=== PATIENT | female | born 1975 | race Caucasian/White ===

== ENCOUNTER → 2016-05-13 | Outpatient (CLI) | payer OTHER ==
--- NOTE | 2016-05-14 08:54 | MM ---
Reason for exam: screening (asymptomatic). Last mammogram was performed 5 years and 11 months ago. History: Patient had first child at age 31. Taking hormonal contraceptives for 1 year beginning at age 33. Physical Findings: A clinical breast exam by your physician is recommended on an annual basis and results should be correlated with mammographic findings. MG Screening Mammo w CAD Bilateral CC and MLO view(s) were taken. Prior study comparison: June 01, 2010, bilateral digital screening mammo w/CAD. The breast tissue is heterogeneously dense. This may lower the sensitivity of mammography. There is no discrete abnormality. No significant changes when compared with prior studies. ASSESSMENT: Negative, BI-RAD 1 RECOMMENDATION: Routine screening mammogram of both breasts in 1 year.
== END ==
LOC: RADMAMWWP 09:12
PROVIDERS: ATTEND Obstetrics & Gynecology
DX: Z12.31 Encounter for screening mammogram for malignant neoplasm of breast (principal)

== ENCOUNTER → 2017-07-12 | Outpatient (CLI) | payer BC ==
--- NOTE | 2017-07-13 10:43 | MM ---
Reason for exam: screening (asymptomatic). Last mammogram was performed 1 year and 2 months ago. History: Patient had first child at age 31. Took hormonal contraceptives for 1 year beginning at age 33. Physical Findings: A clinical breast exam by your physician is recommended on an annual basis and results should be correlated with mammographic findings. MG 3D Screening Mammo W/Cad Bilateral CC and MLO view(s) were taken. Prior study comparison: May 13, 2016, bilateral MG screening mammo w CAD. June 01, 2010, bilateral digital screening mammo w/CAD. The breast tissue is heterogeneously dense. This may lower the sensitivity of mammography. Nodular density left breast 6.7cm from nipple. This finding is changed when compared with previous exams. ASSESSMENT: Incomplete: need additional imaging evaluation, BI-RAD 0 RECOMMENDATION: Special view mammogram of the left breast. If lesion persists on supplemental views, image directed ultrasound is recommended. [facility] will attempt to contact patient to return for supplemental views and ultrasound if indicated.
== END | disposition home or self-care (01) ==
LOC: RADMAMWWP 16:34
PROVIDERS: ATTEND Obstetrics & Gynecology
DX: Z12.31 Encounter for screening mammogram for malignant neoplasm of breast (principal)
CPT/HCPCS: 77063; 77067

== ENCOUNTER → 2017-07-19 | Outpatient (CLI) | payer BC ==
--- NOTE | 2017-07-19 10:06 | MM ---
Reason for exam: additional evaluation requested from abnormal screening. Last mammogram was performed less than 1 month ago. History: Patient had first child at age 31. Took hormonal contraceptives for 15 years beginning at age 19. Physical Findings: Nurse did not find any significant physical abnormalities on exam. MG 3D Work Up W/Cad LT Spot compression CC, spot compression MLO, spot compression LM, and LM view(s) were taken of the left breast. Prior study comparison: July 12, 2017, bilateral MG 3d screening mammo w/cad. May 13, 2016, bilateral MG screening mammo w CAD. The breast tissue is heterogeneously dense. This may lower the sensitivity of mammography. 1.5 x 0.8cm circumscribed oval mass persists 9 o'clock left breast. These results were verbally communicated with the patient and result sheet given to the patient on 07/19/17. ASSESSMENT: Incomplete: need additional imaging evaluation, BI-RAD 0 RECOMMENDATION: Ultrasound of the left breast. (7-10:00)
--- NOTE | 2017-07-19 10:08 | USB ---
Reason for exam: additional evaluation requested from abnormal screening. History: Patient had first child at age 31. Took hormonal contraceptives for 15 years beginning at age 19. US Breast Workup Limited LT Left limited breast ultrasound including focal area of concern, retroareolar and axilla demonstrates no cystic or solid lesion seen. Scanned 6-10 o'clock. 6 month follow up mammogram recommended. These results were verbally communicated with the patient and result sheet given to the patient on 07/19/17. ASSESSMENT: Probably benign, BI-RAD 3 RECOMMENDATION: Follow-up diagnostic mammogram of the left breast in 6 months.
== END | disposition home or self-care (01) ==
LOC: RADMAMWWP 08:16
PROVIDERS: ATTEND Obstetrics & Gynecology
DX: R92.8 Other abnormal and inconclusive findings on diagnostic imaging of breast (principal)
CPT/HCPCS: 77061; 77065

== ENCOUNTER → 2018-08-30 | Outpatient (CLI) | payer BC ==
--- NOTE | 2018-08-31 07:27 | MM ---
Reason for exam: additional evaluation requested from prior study. Last mammogram was performed 7 months ago. History: Patient had first child at age 31. Took hormonal contraceptives for 15 years beginning at age 19. Physical Findings: Nurse did not find any significant physical abnormalities on exam. MG 3D Diag Mammo W/Cad [facility] Bilateral CC and MLO view(s) were taken. Prior study comparison: January 24, 2018, left breast MG 3d diag mammo w/cad LT. July 19, 2017, left breast MG 3d work up w/cad LT. The breast tissue is heterogeneously dense. This may lower the sensitivity of mammography. Benign calcifications. No significant new findings when compared with previous films. These results were verbally communicated with the patient and result sheet given to the patient on 08/30/18. ASSESSMENT: Benign, BI-RAD 2 RECOMMENDATION: Routine screening mammogram of both breasts in 1 year.
== END | disposition home or self-care (01) ==
LOC: RADMAMWWP 15:32
PROVIDERS: ATTEND Obstetrics & Gynecology
DX: R92.8 Other abnormal and inconclusive findings on diagnostic imaging of breast (principal)
CPT/HCPCS: 77062; 77066

== ENCOUNTER → 2020-03-26 | Outpatient (CLI) | payer BC ==
[2020-03-26 08:32] LABS: HCT 42.8 % (34.0-46.0); HGB 14.7 gm/dL (11.4-16.0); MCHC 34.3 g/dL (31.0-37.0); MCV 93.3 fL (80.0-100.0); Platelet Count 254 k/uL (150-450); RBC 4.59 m/uL (3.80-5.40); RDW 11.5 % (11.5-15.5); WBC 4.9 k/uL (3.8-10.6)
[2020-03-26 12:23] LABS: African American GFR (CKD) 103.9 (60.0-200.0); Albumin 4.6 g/dL (3.80-4.90); Albumin/Globulin Ratio 2.09 (1.60-3.17); Anion Gap 4.8 mmol/L (4.00-12.00); BUN/Creat Ratio 13.75 Ratio (12.00-20.00); Calcium 9.4 mg/dL (8.7-10.3); Carbon Dioxide 27.2 mmol/L (21.6-31.8); Chol/HDL Ratio 2.47; Globulin 2.2 g/dL (1.6-3.3); LDL Cholesterol,Calculated 100.2 mg/dL (0.0-131.0); Non-African American GFR(CKD) 89.7 (60.0-200.0); Potassium 4.7 mmol/L (3.5-5.5); Total Bilirubin 1.1 mg/dL (0.2-1.2); Total Protein 6.8 g/dL (6.2-8.2); VLDL Calculation 11.8 mg/dL (5.00-40.00)
== END | disposition home or self-care (01) ==
LOC: LABWHC1 07:47
PROVIDERS: ATTEND Physician Assistant
DX: Z01.419 Encounter for gynecological examination (general) (routine) without abnormal findings (principal); R53.83 Other fatigue
CPT/HCPCS: 36415; 80053; 80061; 82306; 85027

== ENCOUNTER → 2020-04-04 | Outpatient (CLI) | payer BC ==
--- NOTE | 2020-04-07 09:25 | MM ---
Reason for exam: screening (asymptomatic). Last mammogram was performed 1 year and 7 months ago. History: Patient had first child at age 31. Took hormonal contraceptives for 15 years beginning at age 19. Physical Findings: A clinical breast exam by your physician is recommended on an annual basis and results should be correlated with mammographic findings. MG 3D Screening Mammo W/Cad Bilateral CC and MLO view(s) were taken. Prior study comparison: August 30, 2018, bilateral MG 3d diag mammo w/cad [facility]. January 24, 2018, left breast MG 3d diag mammo w/cad LT. The breast tissue is extremely dense which could obscure a lesion on mammography. There is no discrete abnormality. No significant changes when compared with prior studies. ASSESSMENT: Negative, BI-RAD 1 RECOMMENDATION: Routine screening mammogram of both breasts in 1 year.
== END | disposition home or self-care (01) ==
LOC: RADMAMWWP 07:32
PROVIDERS: ATTEND Obstetrics & Gynecology
DX: Z12.31 Encounter for screening mammogram for malignant neoplasm of breast (principal)
CPT/HCPCS: 77063; 77067

== ENCOUNTER → 2021-06-15 | Outpatient (CLI) | payer BC ==
--- NOTE | 2021-06-16 11:02 | MM ---
Reason for exam: screening (asymptomatic). Last mammogram was performed 1 year and 2 months ago. History: Patient had first child at age 31. Took hormonal contraceptives for 15 years beginning at age 19. Physical Findings: A clinical breast exam by your physician is recommended on an annual basis and results should be correlated with mammographic findings. MG 3D Screening Mammo W/Cad Bilateral CC and MLO view(s) were taken. Prior study comparison: April 04, 2020, bilateral MG 3d screening mammo w/cad. August 30, 2018, bilateral MG 3d diag mammo w/cad [facility]. The breast tissue is heterogeneously dense. This may lower the sensitivity of mammography. No significant changes when compared with prior studies. ASSESSMENT: Benign, BI-RAD 2 RECOMMENDATION: Routine screening mammogram of both breasts in 1 year.
== END | disposition home or self-care (01) ==
LOC: RADMAMWWP 16:29
PROVIDERS: ATTEND Obstetrics & Gynecology
DX: Z12.31 Encounter for screening mammogram for malignant neoplasm of breast (principal)
CPT/HCPCS: 77063; 77067

== ENCOUNTER → 2022-06-16 | Outpatient (CLI) | payer BC ==
--- NOTE | 2022-06-17 08:53 | MM ---
Reason for Exam: Screening (asymptomatic). Last screening mammogram was performed 12 month(s) ago. Patient History: Menarche at age 11. First Full-Term at age 31. Late child-bearing (after 30). Patient has history of breast feeding. Hormonal Contraceptives for 15 years from age 19 until age 34. Last menstrual period: 06/09/2022 Risk Values: Liberty 5 year model risk: 1.3%. NCI Lifetime model risk: 14.0%. Prior Study Comparison: 08/30/2018 Bilateral Diagnostic Mammogram, [facility]. 04/04/2020 Bilateral Screening Mammogram, [facility]. 06/15/2021 Bilateral Screening Mammogram, [facility]. Tissue Density: The breast tissue is heterogeneously dense. This may lower the sensitivity of mammography. Findings: Analyzed By CAD. There is no suspicious group of microcalcifications or new suspicious mass in either breast. Overall Assessment: Negative, BI-RAD 1 Management: Screening Mammogram of both breasts in 1 year. 1. Patient should continue monthly self breast exams. 2. A clinical breast exam by your physician is recommended on an annual basis. 3. This exam should not preclude additional follow-up of suspicious palpable abnormalities. Electronically signed and approved by: Jono Brennan M.D. Radiologist
== END | disposition home or self-care (01) ==
LOC: RADMAMWWP 07:04
PROVIDERS: ATTEND Obstetrics & Gynecology
DX: Z12.31 Encounter for screening mammogram for malignant neoplasm of breast (principal)
CPT/HCPCS: 77063; 77067

== ENCOUNTER 2022-07-02 14:36 | Emergency (ER) | payer BC, OTHER ==
[2022-07-02] MEDS ORDERED: CYCLOBENZAPRINE 10 MG TAB PO STA (14:56)
[2022-07-02] MEDS ORDERED: KETOROLAC 15 MG/ML 1 ML VIAL IM STA (14:56)
--- NOTE | 2022-07-02 15:02 | ED ---
Head Injury HPI - General Chief complaint: Head Injury Stated complaint: [facility]HS/HEAD INJURY Time Seen by Provider: 07/02/22 14:49 Source: patient, RN notes reviewed, old records reviewed Mode of arrival: ambulatory Limitations: no limitations - History of Present Illness Initial comments: This is a pleasant nontoxic-appearing 46 year old female that presents ambulatory with family with complaints of having a surgical instrument container weighing approximately 7 pounds fall off of an overhead shelf hitting her on the top of her head, right side. Did not lose consciousness but does feel "foggy". No bleeding. States that she does feel the pain go down the right side of her neck. Does not take any blood thinners. No nausea vomiting dizziness or vision changes. No medical history. MD Complaint: head injury -: hour(s) (1) Mechanism of Injury: work related injury (surgical instrument box fell on her head about 7 pounds) Location: parietal (right) Loss of Consciousness: no Previous Trauma to this Area: No Place: work Radiation: neck Severity scale (1-10): 3 Quality: aching Consistency: constant Associated Symptoms: denies other symptoms - Related Data Previous Rx's Medication Instructions Recorded Cyclobenzaprine [Flexeril] 10 mg PO TID PRN #15 tab 07/02/22 Allergies/Adverse reactions: Allergies Allergy/AdvReac Type Severity Reaction Status Date / Time No Known Allergies Allergy Verified 07/02/22 14:43 Review of Systems ROS Statement: Those systems with pertinent positive or pertinent negative responses have been documented in the HPI. ROS Other: All systems not noted in ROS Statement are negative. Past Medical History Past Medical History: No Reported History History of Any Multi-Drug Resistant Organisms: None Reported Past Surgical History: No Surgical Hx Reported Past Psychological History: No Psychological Hx Reported Smoking Status: Never smoker Past Alcohol Use History: Occasional Past Drug Use History: None Reported General Exam Limitations: no limitations General appearance: alert, in no apparent distress Head exam: Present: atraumatic, normocephalic, normal inspection Expanded Head exam: Present: general tenderness (right parietal). Absent: laceration, abrasion, contusion, hematoma, raccoon eyes, wyman's sign, tenderness of temporal artery, CSF rhinorrhea, CSF otorrhea Eye exam: Present: normal appearance, PERRL, EOMI. Absent: scleral icterus, conjunctival injection, nystagmus, periorbital swelling, periorbital tenderness ENT exam: Present: normal oropharynx, mucous membranes moist Expanded Mouth exam: Present: normal external inspection, tongue normal, tongue elevation. Absent: drooling, trismus, muffled voice Neck exam: Present: tenderness (right lateral), full ROM. Absent: meningismus, lymphadenopathy, thyromegaly Respiratory exam: Absent: respiratory distress, accessory muscle use Cardiovascular Exam: Present: bradycardia Extremities exam: Present: full ROM, normal capillary refill. Absent: tenderness, pedal edema, calf tenderness Neurological exam: Present: alert, oriented X3, CN II-XII intact Expanded Patient oriented to: Present: person, place, time Speech: Present: fluid speech Cranial nerves: EOM's Intact: Normal, Gag Reflex: Normal, Tongue Deviation: Normal Cerebellar function: Finger to Nose: Normal, Heel to [place]: Normal Motor strength exam: RUE: 5, LUE: 5, RLE: 5, LLE: 5 Eye Response: (4) open spontaneously Motor Response: (6) obeys commands Verbal Response: (5) oriented [place] Total: 15 Psychiatric exam: Present: normal affect, normal mood Skin exam: Present: warm, dry, normal color. Absent: cyanosis, diaphoretic, petechiae, pallor Course Vital Signs 07/02/22 14:38 Temperature 98.1 F Pulse Rate 54 L Respiratory 20 Rate Blood Pressure 116/67 O2 Sat by Pulse 99 Oximetry Medical Decision Making - Medical Decision Making Vital signs are stable. [facility] CT Head and C-spine rule result is unnecessary for CT. She was given Toradol and Flexeril for discomfort. Directed to rest. No strenuous activity. Discharged home with Zofran starter pack and Flexeril. Strict return parameters were discussed. Directed to follow-up with primary care doctor or occupational health for continuation of care. Patient any family member agreeable to this plan of care. Case discussed with Dr. Godwin Was pt. sent in by a medical professional or institution (, PA, SPECIAL ORDER JEWELER, urgent care, hospital, or [place] health care facility...) When possible be specific @ -No Did you speak to anyone other than the patient for history (EMS, parent, family, police, friend...)? What history was obtained from this source @ -No Did you review nursing and triage notes (agree or disagree)? Why? @ -I reviewed and agree with nursing and triage notes Were old charts reviewed (outside hosp., previous admission, EMS record, old EKG, old radiological studies, urgent care reports/EKG's, [place] health care facility records)? Report findings @ -No old charts were reviewed Differential Diagnosis (chest pain, altered mental status, abdominal pain women, abdominal pain men, vaginal bleeding, weakness, fever, dyspnea, syncope, headache, dizziness, GI bleed, back pain, seizure, CVA, palpatations, mental health, musculoskeletal)? @ -Skull fracture, intracranial bleed, concussion, hematoma, laceration, concussion, mild head trauma EKG interpreted by me (3pts min.). @ -n/a X-rays interpreted by me (1pt min.). @ -None done CT interpreted by me (1pt min.). @ -None done U/S interpreted by me (1pt. min.). @ -None done What testing was considered but not performed or refused? (CT, X-rays, U/S, labs)? Why? @ -CT considered however unnecessary. Bradley CT head and C-spine rule negative, no evidence of trauma, hematoma or step-offs. No cervical spine tenderness. What meds were considered but not given or refused? Why? @ -None Did you discuss the management of the patient with other professionals (professionals i.e. , PA, SPECIAL ORDER JEWELER, lab, RT, psych nurse, social services specialist, dry mop maker, teacher, protective services officer, egg caser)? Give summary @ -No Was smoking cessation discussed for >3mins.? @ -No Was critical care preformed (if so, how long)? @ -No Were there social determinants of health that impacted care today? How? (Homelessness, low income, unemployed, alcoholism, drug addiction, transportation, low edu. Level, literacy, decrease access to med. care, longterm, rehab)? @ -No Was there de-escalation of care discussed even if they declined (Discuss DNR or withdrawal of care, Hospice)? DNR status @ -No What co-morbidities impacted this encounter? (DM, HTN, Smoking, COPD, CAD, Cancer, CVA, ARF, Chemo, Hep., AIDS, mental health diagnosis, sleep apnea, morbid obesity)? @ -None Was patient admitted / discharged? Hospital course, mention meds given and route, prescriptions, significant lab abnormalities, going to OR and other pertinent info. @ -Discharged Undiagnosed new problem with uncertain prognosis? @ -No Drug Therapy requiring intensive monitoring for toxicity (Heparin, Nitro, Insulin, Cardizem)? @ -No Were any procedures done? @ -No Diagnosis/symptom? @ -Mild head trauma Acute, or Chronic, or Acute on Chronic? @ -Acute Uncomplicated (without systemic symptoms) or Complicated (systemic symptoms)? @ -default Side effects of treatment? @ -No Exacerbation, Progression, or Severe Exacerbation? @ -No Poses a threat to life or bodily function? How? (Chest pain, [place], [place], pneumonia, PE, COPD, DKA, ARF, appy, cholecystitis, CVA, Diverticulitis, Homicidal, Suicidal, threat to staff... and all critical care pts) @ -No Disposition Clinical Impression: Closed head injury Disposition: HOME SELF-CARE Condition: Good Instructions (If sedation given, give patient instructions): Concussion (ED) Additional Instructions: Tylenol and/or Motrin as needed for any pain or discomfort. Zofran as needed for nausea. Flexeril as a muscle relaxer as needed. Do not drive or drink alcohol or operate heavy machinery when taking Flexeril. Follow-up with your primary care doctor or occupational health on Tuesday. Return to the emergency room with any new or concerning symptoms. Prescriptions: Cyclobenzaprine [Flexeril] 10 mg PO TID PRN #15 tab PRN Reason: Muscle Spasm Is patient prescribed a controlled substance at d/c from ED?: No Referrals: Diana Traylor DO [Primary Care Provider] - 1-2 days Time of Disposition: 15:44
[2022-07-02] MEDS ORDERED: ONDANSETRON 4 MG ODT STARTER PACK 2 TAB BTL PO STA (15:44)
[2022-07-02 16:03] VITALS: BP 120/75; PULSE 53; RESP 16; TEMP 98.3
== END 2022-07-02 16:03 | disposition home or self-care (01) ==
LOC: SUPCPDRO 14:36 → EC 14:36
DX: S09.90XA Unspecified injury of head, initial encounter (principal); W22.8XXA Striking against or struck by other objects, initial encounter
CPT/HCPCS: 99283; 96372; J1885

== ENCOUNTER → 2022-07-09 | Outpatient (CLI) | payer OTHER ==
--- NOTE | 2022-07-09 10:03 | CT ---
EXAMINATION TYPE: CT brain cspine wo con DATE OF EXAM: 07/09/2022 COMPARISON: NONE HISTORY: 7 lb tray fell on RT parietal region on 07/02/22, headache, cervical pain. CT DLP: 1589 mGycm. Automated Exposure Control for Dose Reduction was Utilized. TECHNIQUE: CT scan of the head and cervical spine are performed without contrast. FINDINGS: There is no acute intracranial hemorrhage, mass effect, or midline shift identified. The ventricles and sulci are within normal limits in size. Mckenzie-white matter differentiation is maintai dolly. The globes are intact and the visualized sinuses are clear. The calvarium is intact. Cervical spine is visualized in its entirety from C1 through upper thoracic levels and demonstrates s atisfactory alignment without evidence of acute fracture or dislocation. Prevertebral soft tissue ap pears within normal limits. The C1-C2 articulation is within normal limits on the coronal images. V ertebral body heights and disc space heights are maintained. Spinal canal is preserved. Thyroid gland is within normal limits. Lung apices show no pneumothorax. IMPRESSION: 1. There is no acute fracture or dislocation evident in the cervical spine. 2. No acute intracranial hemorrhage, mass effect, or midline shift is seen.
== END | disposition home or self-care (01) ==
LOC: RADCTMAIN 09:15
PROVIDERS: ATTEND Emergency Medicine
DX: S00.83XA Contusion of other part of head, initial encounter (principal); S13.4XXA Sprain of ligaments of cervical spine, initial encounter
CPT/HCPCS: 70450; 72125

== ENCOUNTER 2023-02-23 06:36 | Day surgery (SDC) | payer BC ==
[2023-02-21 13:09] VITALS: BMI 27.0
[~2023-02-23 06:36] MED LIST: LACTATED RINGERS 1,000 ML IV SCH
[2023-02-23 07:14] VITALS: TEMP 97.1
[2023-02-23] MEDS ORDERED: PROPOFOL 10 MG/ML 20 ML VIAL IV ONE (07:23)
[2023-02-23] MEDS ORDERED: LIDOCAINE 1% INJ 10MG/ML (20 ML MDV) ONE (07:23)
--- NOTE | 2023-02-23 07:48 | P.PCN ---
Date of Procedure: 02/23/23 Procedure(s) Performed: Brief history: Patient is a pleasant 47-year-old white female scheduled for an upper endoscopy as well as colonoscopy as a part of evaluation of right upper quadrant abdominal pain and screening for colon cancer . Procedure performed: Esophagogastroduodenoscopy with biopsy Colonoscopy Preoperative diagnosis: Right upper quadrant abdominal pain Screening for colon cancer Anesthesia: [facility] Procedure: After informed consent was obtained from the patient was brought into the endoscopy unit and IV sedation was administered by anesthesia under continuous monitoring. Initially upper endoscopy was done. The Olympus GF 160 video endoscope was inserted inserted into the mouth and esophagus intubated without any difficulty and was gradually advanced into the stomach and duodenum and carefully examined. The bulb and second part of the duodenum appeared normal. The scope was then withdrawn into the stomach adequately insufflated with air and upon careful examination the antrum had mild gastritis and biopsies were done from this area. Mucosa of the body, cardia and fundus appeared normal. The scope was then withdrawn into the esophagus. The GE junction was located at 40 cm to the incisors. It appeared regular with no erythema erosions or ulcerations. Rest of the esophagus appeared normal. Patient tolerated the procedure well. At this time the patient continued to remain sedation. Initial digital rectal examination was normal. Olympus CF 160 video colonoscope was then inserted into the rectum and gradually advanced to the cecum without any difficulty. Careful examination was performed as the scope was gradually being withdrawn. The prep was excellent. The cecum, ascending colon, transverse colon, descending colon, sigmoid colon and rectum appeared normal. Scattered sigmoid diverticulosis. Recommend repeat screening colonoscopy in 10 years. Retroflexion was performed in the rectum and no lesions were noted. Patient tolerated the procedure well. Impression: 1. Upper endoscopy revealed mild antral gastritis but no evidence of esophagitis or peptic disease 2. Colonoscopy revealed scattered sigmoid diverticulosis but no evidence of colorectal neoplasia Recommendations: Findings of this examination were discussed with the patient as well as her family. She was advised to follow with the biopsy results. Recommend repeat scanning colonoscopy in 10 years.
[2023-02-23 08:04] VITALS: RESP 20
[2023-02-23 08:30] VITALS: BP 124/57; PULSE 56
== END 2023-02-23 08:35 ==
LOC: ORWHC2ENDO 06:36
PROVIDERS: ATTEND Internal Medicine Gastroenterology
DX: Z12.11 Encounter for screening for malignant neoplasm of colon (principal); K31.9 Disease of stomach and duodenum, unspecified; K21.9 Gastro-esophageal reflux disease without esophagitis; K57.30 Diverticulosis of large intestine without perforation or abscess without bleeding; Z79.899 Other long term (current) drug therapy
CPT/HCPCS: 81025; 88305; 43239; J2001; J2704; G0121

== ENCOUNTER → 2023-07-04 | Outpatient (CLI) | payer BC ==
--- NOTE | 2023-07-05 07:15 | MM ---
Reason for Exam: Screening (asymptomatic). Last screening mammogram was performed 12 month(s) ago. Patient History: Menarche at age 11. First Full-Term at age 31. Late child-bearing (after 30). Patient has history of breast feeding. Hormonal Contraceptives for 15 years from age 19 until age 34. Risk Values: Liberty 5 year model risk: 1.3%. NCI Lifetime model risk: 13.8%. Prior Study Comparison: 04/04/2020 Bilateral Screening Mammogram, [facility]. 06/15/2021 Bilateral Screening Mammogram, [facility]. 06/16/2022 Bilateral MG 3D screening mammo w/cad, [facility]. Tissue Density: The breasts are heterogeneously dense, which may obscure small masses. Findings: Analyzed By CAD. There is no suspicious group of microcalcifications. Asymmetric density upper outer right breast 6.9 cm from the nipple. Additional views are recommended. Overall Assessment: Incomplete: need additional imaging evaluation, BI-RAD 0 Management: Diagnostic Mammogram of the right breast. . Patient should continue monthly self-breast exams. A clinical breast exam by your physician is recommended on an annual basis. This exam should not preclude additional follow-up of suspicious palpable abnormalities. Note on Liberty scores and lifetime risk: 1. A Liberty score greater than 3% is considered moderate risk. If this is the case, consider specialist referral to assess eligibility for a risk reducing agent. 2. If overall lifetime risk for the development of breast cancer is 20% or higher, the patient may qualify for future screening with alternating mammogram and breast MRI. Electronically signed and approved by: Lorenzo Jose M.D. Radiologis
== END | disposition home or self-care (01) ==
LOC: RADMAMWWP 06:56
PROVIDERS: ATTEND Obstetrics & Gynecology
DX: Z12.31 Encounter for screening mammogram for malignant neoplasm of breast (principal)
CPT/HCPCS: 77063; 77067

== ENCOUNTER → 2023-07-08 | Outpatient (CLI) | payer BC ==
--- NOTE | 2023-07-08 13:59 | MM ---
Reason for Exam: Additional evaluation requested from abnormal screening. Last screening mammogram was performed less than 1 month ago. Patient History: Menarche at age 11. First Full-Term at age 31. Late child-bearing (after 30). Patient has history of breast feeding. Hormonal Contraceptives for 15 years from age 19 until age 34. Risk Values: Liberty 5 year model risk: 1.3%. NCI Lifetime model risk: 13.8%. Prior Study Comparison: 06/01/2010 Bilateral Screening Mammogram, [facility]. 05/13/2016 Bilateral Screening Mammogram, [facility]. 07/12/2017 Bilateral Screening Mammogram, [facility]. 07/19/2017 Left Diagnostic Mammogram, [facility]. 07/19/2017 Left Diagnostic Ultrasound, [facility]. 01/24/2018 Left Diagnostic Mammogram, [facility]. 01/24/2018 Left Diagnostic Ultrasound, [facility]. 08/30/2018 Bilateral Diagnostic Mammogram, [facility]. 04/04/2020 Bilateral Screening Mammogram, [facility]. 06/15/2021 Bilateral Screening Mammogram, [facility]. 06/16/2022 Bilateral MG 3D screening mammo w/cad, [facility]. 07/04/2023 Bilateral MG 3D screening mammo w/cad, [facility]. Tissue Density: Right: The breasts are heterogeneously dense, which may obscure small masses. Findings: Analyzed By CAD. Area of asymmetric density upper outer right breast is improved upon spot compression imaging. Precautionary six-month follow-up of the right breast is recommended. Overall Assessment: Probably benign, BI-RAD 3 Management: Diagnostic Mammogram of the right breast in 6 months. . Results were given to the patient verbally at the time of exam. Patient should continue monthly self-breast exams. A clinical breast exam by your physician is recommended on an annual basis. This exam should not preclude additional follow-up of suspicious palpable abnormalities. Note on Liberty scores and lifetime risk: 1. A Liberty score greater than 3% is considered moderate risk. If this is the case, consider specialist referral to assess eligibility for a risk reducing agent. 2. If overall lifetime risk for the development of breast cancer is 20% or higher, the patient may qualify for future screening with alternating mammogram and breast MRI. Electronically signed and approved by: Lorenzo Jose M.D. Radiologis
== END | disposition home or self-care (01) ==
LOC: RADMAMWWP 13:26
PROVIDERS: ATTEND Obstetrics & Gynecology
DX: R92.8 Other abnormal and inconclusive findings on diagnostic imaging of breast (principal); R92.331 Mammographic heterogeneous density, right breast
CPT/HCPCS: 77061; 77065

== ENCOUNTER → 2024-01-18 | Outpatient (CLI) | payer BC ==
--- NOTE | 2024-01-18 07:24 | MM ---
Reason for Exam: Follow-up at short interval from prior study. Last screening mammogram was performed 7 month(s) ago. Patient History: Menarche at age 11. First Full-Term at age 31. Late child-bearing (after 30). Patient has history of breast feeding. Hormonal Contraceptives for 15 years from age 19 until age 34. Risk Values: Liberty 5 year model risk: 1.4%. NCI Lifetime model risk: 13.6%. Prior Study Comparison: 06/16/2022 Bilateral MG 3D screening mammo w/cad, [facility]. 07/04/2023 Bilateral MG 3D screening mammo w/cad, [facility]. 07/08/2023 Right MG 3D work up w/cad RT, [facility]. Tissue Density: Right: The breasts are heterogeneously dense, which may obscure small masses. Findings: Analyzed By CAD. The pattern is stable. No suspicious persistent distortion evident. No suspicious groups of microcalcifications, spiculated or lobular masses, architectural distortion or other secondary signs of malignancy are mammographically apparent. Overall Assessment: Benign, BI-RAD 2 Management: Screening Mammogram of both breasts in 6 months. A negative mammogram report should not preclude additional follow up of suspicious palpable abnormalities. Patient should continue monthly self breast exam. A clinical breast exam by your physician is recommended on an annual basis and results should be correlated with mammographic findings. Note on Liberty scores and lifetime risk: 1. A Liberty score greater than 3% is considered moderate risk. If this is the case, consider specialist referral to assess eligibility for a risk reducing agent. 2. If overall lifetime risk for the development of breast cancer is 20% or higher, the patient may qualify for future screening with alternating mammogram and breast MRI. [facility], , 01/18/2024 7:20 AM. Electronically signed and approved by: Jose Guadalupe Alexander D.O. Radiologis
== END | disposition home or self-care (01) ==
LOC: RADMAMWWP 06:54
PROVIDERS: ATTEND Obstetrics & Gynecology
DX: R92.8 Other abnormal and inconclusive findings on diagnostic imaging of breast (principal); R92.331 Mammographic heterogeneous density, right breast
CPT/HCPCS: 77061; 77065

== ENCOUNTER → 2024-09-07 | Outpatient (CLI) | payer BC ==
--- NOTE | 2024-09-07 08:02 | MM ---
Reason for Exam: Screening (asymptomatic). Last mammogram was performed 1 year(s) and 2 month(s) ago. Patient History: Menarche at age 11. First Full-Term at age 31. Late child-bearing (after 30). Patient has history of breast feeding. Currently using Progesterone, starting at age 49. Hormonal Contraceptives for 15 years from age 19 until age 34. Risk Values: Liberty 5 year model risk: 1.4%. NCI Lifetime model risk: 13.4%. Prior Study Comparison: 07/04/2023 Bilateral MG 3D screening mammo w/cad, [facility]. 07/08/2023 Right MG 3D work up w/cad RT, [facility]. 01/18/2024 Right MG 3D diag mammo w/cad RT, [facility]. Tissue Density: The breasts are heterogeneously dense, which may obscure small masses. Findings: Analyzed By CAD. Right breast: There is no suspicious group of microcalcifications or new suspicious mass. Left breast: There is no suspicious group of microcalcifications or new suspicious mass. Overall Assessment: Negative, BI-RAD 1 Management: Screening Mammogram of both breasts in [address] [facility] will attempt to contact patient to return for supplemental views and ultrasound if indicated. Patient should continue monthly self-breast exams. A clinical breast exam by your physician is recommended on an annual basis. This exam should not preclude additional follow-up of suspicious palpable abnormalities. Note on Liberty scores and lifetime risk: 1. A Liberty score greater than 3% is considered moderate risk. If this is the case, consider specialist referral to assess eligibility for a risk reducing agent. 2. If overall lifetime risk for the development of breast cancer is 20% or higher, the patient may qualify for future screening with alternating mammogram and breast MRI. [facility], , 09/07/2024 7:59 AM. Electronically signed and approved by: Joey Rivera DO
== END | disposition home or self-care (01) ==
LOC: RADMAMWWP 06:51
PROVIDERS: ATTEND Obstetrics & Gynecology
DX: Z12.31 Encounter for screening mammogram for malignant neoplasm of breast (principal); R92.333 Mammographic heterogeneous density, bilateral breasts; Z92.0 Personal history of contraception
CPT/HCPCS: 77063; 77067